=== PATIENT | female | born 1955 | race Caucasian/White ===

== ENCOUNTER → 2016-05-19 | Outpatient (CLI) | payer MEDICARE ==
[2016-05-19 14:38] LABS: APPEARANCE,URINE CLEAR; BILIRUBIN,URINE NEGATIVE (NEGATIVE); GLUCOSE, URINE NEGATIVE (NEGATIVE); KETONES,URINE NEGATIVE (NEGATIVE); LEUKOCYTE ESTERASE,URINE NEGATIVE (NEGATIVE); NITRITE,URINE NEGATIVE (NEGATIVE); PROTEIN,URINE NEGATIVE (NEGATIVE); UROBILINOGEN,URINE NEGATIVE mg/dL (<2.0)
[2016-05-19 14:57] LABS: ANION GAP 16 (5-19); BLOOD UREA NITROGEN 20 mg/dL (7-20); CALCIUM 9.7 mg/dL (8.4-10.2); CARBON DIOXIDE 20 mmol/L (22-30); CHLORIDE 105 mmol/L (98-107); CREATININE RESULT 0.74 mg/dL (0.52-1.25); GLUCOSE 120 mg/dL (75-110); POTASSIUM 3.8 mmol/L (3.6-5.0); SODIUM 141.4 mmol/L (137-145)
[2016-05-21 11:38] LABS: CREATININE URINE 46.2 mg/dL (Not Estab.); MICROALBUMIN URINE 9.9 ug/mL (Not Estab.)
== END ==
LOC: OD 12:56
PROVIDERS: ATTEND Internal Medicine Nephrology
DX: R80.9 Proteinuria, unspecified (principal); N39.0 Urinary tract infection, site not specified; I10 Essential (primary) hypertension
CPT/HCPCS: 36415; 80048; 81001; 82043; 82570; 87086

== ENCOUNTER 2020-05-13 23:01 | Emergency (ER) | payer MEDICARE ==
--- NOTE | 2020-05-13 23:37 | ER Document Report ---
ED Medical Screen (RME) - General Stated Complaint: RECTAL PAIN Time Seen by Provider: 05/13/20 23:25 Notes: Patient presents complaining of a mass to the perirectal area. Patient states that she is not certain if it is a hemorrhoid or not. Patient states that she has had a white discharge from the rectum. Patient did see her primary doctor 2 days ago who did a rectal examination and told her that she did not have hemorrhoids at that time. Patient's last bowel movement was 5 days ago. Patient does have problems with chronic constipation due to her MS. Patient also has history of COPD. Patient denies any fever. Patient denies any blood in the stool. I have greeted and performed a rapid initial assessment of this patient. A comprehensive ED assessment and evaluation of the patient, analysis of test results and completion of the medical decision making process will be conducted by additional ED providers. TRAVEL OUTSIDE OF THE [place] IN LAST 30 DAYS: No - Related Data Allergies/Adverse Reactions: Penicillins Allergy (Verified 06/17/16 11:27) shellfish derived Allergy (Verified 06/17/16 11:27) Sulfa (Sulfonamide Antibiotics) Allergy (Verified 06/17/16 11:27) roaches Allergy (Uncoded 06/17/16 11:27) Past Medical History - Past Medical History Cardiac Medical History: Reports: Hx Hypertension Denies: Hx Coronary Artery Disease, Hx Heart Attack Pulmonary Medical History: Reports: Hx Asthma - A CHILD, Hx Bronchitis, Hx COPD Denies: Hx Pneumonia Neurological Medical History: Reports: Hx Cerebrovascular Accident. Denies: Hx Seizures Endocrine Medical History: Denies: Hx Diabetes Mellitus Type 1, Hx Diabetes Mellitus Type 2 Musculoskeltal Medical History: Denies Hx Arthritis Past Surgical History: Reports: Hx Hysterectomy, Hx Tubal Ligation - Immunizations Hx Diphtheria, Pertussis, Tetanus Vaccination: Yes Physical Exam - Vital signs Vitals: Temp Pulse Resp BP Pulse Ox 97.8 F 101 H 18 164/83 H 96 05/13/20 23:10 05/13/20 23:10 05/13/20 23:10 05/13/20 23:10 05/13/20 23:10 - General General appearance: Appears well, Alert In distress: None Notes: Area unable to be examined as patient is in triage Course - Vital Signs Vital signs: Temp Pulse Resp BP Pulse Ox 97.8 F 101 H 18 164/83 H 96 05/13/20 23:10 05/13/20 23:10 05/13/20 23:10 05/13/20 23:10 05/13/20 23:10
--- NOTE | 2020-05-14 02:57 | ER Document Report ---
ED GI Bleed / Rectal Pain - General Chief Complaint: Rectal Pain Stated Complaint: RECTAL PAIN Time Seen by Provider: 05/13/20 23:25 Primary Care Provider: TAINA NULL MD [ACTIVE STAFF] - Follow up tomorrow (Call tomorrow for an outpatient follow-up appointment) Mode of Arrival: Ambulatory Information source: Patient Notes: 64-year-old female with a past medical history significant for multiple sclerosis presents to the emergency room stating that she feels like she cannot fully have a bowel movement for the past several days. She states that every time she has a bowel movement and wipes again has a sensation to go sit back down and does not have any additional bowel movements. Patient states she also feels that she has a lump in her rectal area saw her primary care physician on Monday who did not note any hemorrhoids. Patient states tonight after having a bowel movement she noted bright red blood on wiping. She again thought she felt could possibly be "hemorrhoid". She has no history of hemorrhoids. Has not had any hard bowel movements. Denies any abdominal pain. No nausea, no vomiting. TRAVEL OUTSIDE OF THE [place] IN LAST 30 DAYS: No - Related Data Allergies/Adverse Reactions: Penicillins Allergy (Verified 05/13/20 23:36) shellfish derived Allergy (Verified 05/13/20 23:36) Sulfa (Sulfonamide Antibiotics) Allergy (Verified 05/13/20 23:36) roaches Allergy (Uncoded 06/17/16 11:27) Past Medical History - General Information source: Patient - Social History Smoking Status: Current Every Day Smoker Frequency of alcohol use: None Drug Abuse: None Family History: Reviewed & Not Pertinent - Past Medical History Cardiac Medical History: Reports: Hx Hypertension Denies: Hx Coronary Artery Disease, Hx Heart Attack Pulmonary Medical History: Reports: Hx Asthma - A CHILD, Hx Bronchitis, Hx COPD Denies: Hx Pneumonia Neurological Medical History: Reports: Hx Cerebrovascular Accident. Denies: Hx Seizures Endocrine Medical History: Denies: Hx Diabetes Mellitus Type 1, Hx Diabetes Mellitus Type 2 Musculoskeletal Medical History: Denies Hx Arthritis Past Surgical History: Reports: Hx Hysterectomy, Hx Tubal Ligation - Immunizations Hx Diphtheria, Pertussis, Tetanus Vaccination: Yes Review of Systems - Review of Systems Constitutional: No symptoms reported EENT: No symptoms reported Cardiovascular: No symptoms reported Respiratory: No symptoms reported Gastrointestinal: Rectal bleeding. denies: Abdominal pain, Diarrhea, Nausea, Vomiting, Constipation Genitourinary: No symptoms reported Musculoskeletal: No symptoms reported Hematologic/Lymphatic: No symptoms reported Neurological/Psychological: No symptoms reported -: Yes All other systems reviewed and negative Physical Exam - Vital signs Vitals: Temp Pulse Resp BP Pulse Ox 97.8 F 101 H 18 164/83 H 96 05/13/20 23:10 05/13/20 23:10 05/13/20 23:10 05/13/20 23:10 05/13/20 23:10 - General General appearance: Appears well, Alert In distress: Mild - Respiratory Respiratory status: No respiratory distress Chest status: Nontender Breath sounds: Normal Chest palpation: Normal - Cardiovascular Rhythm: Regular Heart sounds: Normal auscultation Murmur: No - Abdominal Inspection: Normal Distension: No distension Bowel sounds: Normal Tenderness: Nontender Organomegaly: No organomegaly - Rectal Tenderness: No Stool: Heme positive Hemorrhoids: None Notes: [employer] nurse Paige present during rectal exam. Patient does wear pull-ups and there was bright red blood noted on her pull-ups. - Back Back: Normal, Nontender. No: CVA tenderness - Neurological Neuro grossly intact: Yes Cognition: Normal Orientation: AAOx4 [place] Coma Scale Eye Opening: Spontaneous [place] Coma Scale Verbal: Oriented [place] Coma Scale Motor: Obeys Commands [place] Coma Scale Total: 15 Speech: Normal Motor strength normal: LUE, RUE, LLE, RLE Sensory: Normal - Skin Skin Temperature: Warm Skin Moisture: Dry Skin Color: Normal Course - Re-evaluation Re-evalutation: 05/14/20 03:36 Discussed with patient the importance of outpatient follow-up with a tread booker for her rectal bleeding. Patient will be provided with an tread booker in the area to call for an appointment. Her labs are stable. No additional testing is required at this time. She is to call tomorrow for an outpatient follow-up appointment. Patient was given strict return to the [facility] room guidelines. Return for any new or worsening symptoms. All questions were answered. Patient verbalized understanding and agrees with plan of care. 05/14/20 03:37 - Vital Signs Vital signs: Temp Pulse Resp BP Pulse Ox 97.7 F 60 16 145/78 H 94 05/14/20 03:50 05/14/20 03:50 05/14/20 03:50 05/14/20 03:50 05/14/20 03:50 - Laboratory Results Result Diagrams: 05/14/20 03:00 Laboratory Results Interpreted: 05/14/20 03:00 WBC 12.5 H RDW 16.7 H Basophils % (Manual) 5 H Abs Basophils (Manual) 0.6 H Critical Laboratory Results Reviewed: No Critical Results - Radiology Results Critical Radiology Results Reviewed: No Critical Results Discharge - Discharge Clinical Impression: Rectal bleeding Condition: Stable Disposition: HOME, SELF-CARE Instructions: Rectal Bleeding, Unclear Cause ([facility]) Additional Instructions: Your hemoglobin and hematocrit are stable at this time. There is blood in your stool. It is important that you call a tread booker for an outpatient follow-up appointment. Return to the emergency room for any new or worsening symptoms. Referrals: TAINA NULL MD [ACTIVE STAFF] - Follow up tomorrow (Call tomorrow for an outpatient follow-up appointment)
[2020-05-14 03:09] LABS: HEMATOCRIT 43.3 % (36.0-47.0); HEMOGLOBIN 14.1 g/dL (12.0-15.5); MEAN CORPUSCULAR HEMOGLOBIN 28.7 pg (27.0-33.4); MEAN CORPUSCULAR HGB CONC 32.7 g/dL (32.0-36.0); MEAN CORPUSCULAR VOLUME 88 fl (80-97); RED BLOOD COUNT 4.92 10^6/uL (3.72-5.28); RED CELL DISTRIBUTION WIDTH 16.7 % (11.5-14.0); WHITE BLOOD COUNT 12.5 10^3/uL (4.0-10.5)
[2020-05-14 03:25] LABS: ABSOLUTE LYMPHOCYTES# (MANUAL) 3.8 10^3/uL (0.5-4.7); ABSOLUTE MONOCYTES # (MANUAL) 0.8 10^3/uL (0.1-1.4); EOSINOPHILS % (MANUAL) 3 % (0-6); LYMPHOCYTES % (MANUAL) 30 % (13-45); MONOCYTES % (MANUAL) 6 % (3-13); SEGMENTED NEUTROPHILS % (MAN) 56 % (42-78); TOTAL CELLS COUNTED 100
[2020-05-14 03:27] LABS: BASOPHILS % (MANUAL) 5 % (0-2); PLATELET CLUMPS PRESENT; PLATELET COMMENT ADEQUATE; PLATELET COUNT 391 10^3/uL (150-450)
[2020-05-14 03:54] VITALS: BP 145/78
[2020-05-14 13:59] LABS: PATH REVIEW PATHOLOGIST REVIEWED
== END 2020-05-14 03:54 | disposition home or self-care (01) ==
LOC: ER 23:01
DX: K62.5 Hemorrhage of anus and rectum (principal); F17.200 Nicotine dependence, unspecified, uncomplicated; I10 Essential (primary) hypertension; G35 Multiple sclerosis; Z88.0 Allergy status to penicillin; Z88.2 Allergy status to sulfonamides
CPT/HCPCS: 36415; 85025; 99284